=== PATIENT | male | born 1990 | race African-American/Black ===

== ENCOUNTER 2021-11-27 14:44 | Emergency (ER) | payer MEDICAID ==
[~2021-11-27] VITALS: Ht 185.4 cm; Wt 99.0 kg
[2021-11-27] MEDS ORDERED: LEVETIRACETAM 500MG PREMIX 100 ML IV ONE ×2 (15:15)
[2021-11-27] MEDS ORDERED: MIDAZOLAM HCL 2 MG/2 ML VIAL IV NR (15:45)
[2021-11-27 20:03] VITALS: BP 140/89
== END 2021-11-27 20:12 | disposition home or self-care (01) ==
LOC: ER 14:44
DX: G40.909 Epilepsy, unspecified, not intractable, without status epilepticus (principal); Z91.14 Patient's other noncompliance with medication regimen
CPT/HCPCS: 96365; 96366; 99284; J1953

== ENCOUNTER 2022-05-09 11:01 | Emergency (ER) | payer MEDICAID ==
[~2022-05-09] VITALS: Ht 177.8 cm; Wt 80.0 kg
[2022-05-09] MEDS ORDERED: LEVETIRACETAM 1000MG PREMIX 100 ML IV ONE (11:30)
[2022-05-09] MEDS ORDERED: SODIUM CHLORIDE 0.9% 1,000 ML IV ONE ×2 (11:30→13:30)
[2022-05-09 13:01] LABS: HEMATOCRIT. 47.5 % (42.0-52.0); HEMOGLOBIN. 16.1 g/dL (14.0-18.0); MEAN CORPUSCULAR HEMOGLOBIN 29.6 pg (28.0-32.0); MEAN CORPUSCULAR VOLUME 87.5 fL (80.0-94.0); RED BLOOD CELL COUNT 5.43 mill/uL (4.7-6.1); RED CELL DISTRIBUTION WIDTH 13.9 % (11.6-14.6)
[2022-05-09 13:08] LABS: CHLORIDE 108 mEq/L (98-107)
[2022-05-09 13:17] LABS: ETHANOL BLOOD < 10 mg/dL
[2022-05-09 13:27] LABS: PLATELET ESTIMATE NORMAL
[2022-05-09 14:19] LABS: CLARITY URINE CLEAR (CLEAR); COLOR URINE ORANGE (YELLOW); KETONES URINE 1+ (NEGATIVE); LEUKOCYTE ESTERASE URINE NEGATIVE (NEGATIVE); NITRITE URINE NEGATIVE (NEGATIVE); OCCULT BLOOD URINE TRACE (NEGATIVE); PH URINE 5.5 (4.5-8.0); PROTEIN URINE TRACE (NEGATIVE); SPECIFIC GRAVITY URINE 1.016 (1.005-1.030); UROBILINOGEN URINE 0.2 E.U./dL (0.2-1.0)
[2022-05-09 14:44] LABS: *AMPHETAMINES SCREEN URINE NEGATIVE (NEGATIVE); *BARBITURATES SCREEN URINE NEGATIVE (NEGATIVE); *BENZODIAZEPINES SCREEN URINE PRESUMTIVE POSITIVE (NEGATIVE); *COCAINE SCREEN URINE NEGATIVE (NEGATIVE); CANNABINOID URINE SCREEN NEGATIVE (NEGATIVE); METHADONE URINE SCREEN NEGATIVE (NEGATIVE); OPIATES URINE SCREEN NEGATIVE (NEGATIVE); PHENCYCLIDINE URINE SCREEN NEGATIVE (NEGATIVE)
[2022-05-09 16:00] VITALS: BP 118/58
== END 2022-05-09 17:33 | disposition home or self-care (01) ==
LOC: ER 12:03
DX: G40.909 Epilepsy, unspecified, not intractable, without status epilepticus (principal); F10.229 Alcohol dependence with intoxication, unspecified; Y90.0 Blood alcohol level of less than 20 mg/100 ml
CPT/HCPCS: 36415; 70450; 76705; 80053; 80305; 80320; 81003; 82962; 83690; 85025; 96361; 96365; 96366; 99285; J1953; J7030; Z7610; G0480